=== PATIENT | male | born 1980 | race Caucasian/White ===

== ENCOUNTER 2016-12-14 16:06 | Emergency (ER) | payer MEDICAID ==
[2016-12-14 16:13] VITALS: BMI 25.1
[2016-12-14 16:21] VITALS: O2SAT 95
[2016-12-14] MEDS ORDERED: Sodium Chloride 0.9% 1,000 ML IV ONE (16:31)
--- NOTE | 2016-12-14 16:37 | C.PDOC ---
History Of Present Illness 36 year old male with a Hx of hepatitis C who presents to the ER with a complaint of constant bilious vomiting and PO intolerance that began this morning. Patient states he is an active heroin user; last use was earlier today. Patient reports he took an extra dose of heroin just to make sure he was not in withdrawal; however, it did not help. Patient states he feels flushed but denies diarrhea, fever, or chills. Time Seen by Provider: 12/14/16 16:16 Chief Complaint (Nursing): GI Problem History Per: Patient History/Exam Limitations: no limitations Onset/Duration Of Symptoms: Hrs Current Symptoms Are (Timing): Still Present Quality Of Discomfort: Unable To Describe Associated Symptoms: Vomiting. denies: Fever, Chills, Diarrhea Exacerbating Factors: None Alleviating Factors: None Recent travel outside of the [place]: No Past Medical History Reviewed: Historical Data, Nursing Documentation, Vital Signs Vital Signs: Last Vital Signs Temp 97.8 F 12/14/16 16:13 Pulse 90 12/14/16 16:13 Resp 18 12/14/16 16:13 BP 138/85 12/14/16 16:13 Pulse Ox 95 12/14/16 16:42 - Medical History PMH: No Chronic Diseases Surgical History: No Surg Hx Family History: States: Unknown Family Hx - Social History Hx Tobacco Use: No Hx Alcohol Use: Yes Hx Substance Use: No - Immunization History Hx Tetanus Toxoid Vaccination: No Hx Influenza Vaccination: No Hx Pneumococcal Vaccination: No Review Of Systems Constitutional: Negative for: Fever, Chills Gastrointestinal: Positive for: Vomiting. Negative for: Diarrhea Physical Exam - Physical Exam Appears: Non-toxic, Other (Actively vomiting) Skin: Normal Color, Warm, Diaphoretic Head: Atraumatic, Normacephalic Oral Mucosa: Moist Chest: Symmetrical, No Tenderness Cardiovascular: Rhythm Regular, No Murmur Respiratory: Normal Breath Sounds, No Rales, No Rhonchi, No Wheezing Gastrointestinal/Abdominal: Soft, No Tenderness Neurological/Psych: Oriented x3, Normal Speech, Normal Cognition ED Course And Treatment - Laboratory Results Result Diagrams: 12/14/16 17:05 12/14/16 17:05 O2 Sat by Pulse Oximetry: 95 (Room air) Pulse Ox Interpretation: Normal Medical Decision Making Medical Decision Making: Plan: * Blood work * Urinalysis * Abdominal x-ray * Pepcid * Zofran * IV fluids Feeling better Disposition Counseled Patient/Family Regarding: Studies Performed, Diagnosis - Disposition Disposition: HOME/ ROUTINE Disposition Time: 18:36 Condition: STABLE Prescriptions: Ondansetron ODT [Zofran ODT] 1 odt PO BID PRN #6 odt PRN Reason: Nausea/Vomiting Instructions: Acute Nausea and Vomiting (ED) Forms: General Discharge Instructions - POA Present On Arrival: None - Clinical Impression Clinical Impression: Gastritis, Vomiting - Scribe Statement The provider has reviewed the documentation as recorded by the Scribrama Antunez All medical record entries made by the Mary were at my direction and personally dictated by me. I have reviewed the chart and agree that the record accurately reflects my personal performance of the history, physical exam, medical decision making, and the department course for this patient. I have also personally directed, reviewed, and agree with the discharge instructions and disposition.
[2016-12-14] MEDS ORDERED: Sodium Chloride 0.9% 1,000 ML ONE (16:52)
--- NOTE | 2016-12-14 17:07 | RAD ---
PROCEDURE: Radiographs of the chest and abdomen (obstructive series) HISTORY: abd pain COMPARISON: No prior. TECHNIQUE: AP radiograph of the chest, with upright and supine radiographs of the abdomen. FINDINGS: CHEST: Lungs: Clear. Cardiovascular: Normal size heart. No pulmonary vascular congestion. Pleura: No pleural fluid. No pneumothorax. Other findings: None. ABDOMEN AND PELVIS: Bowel: Unremarkable bowel gas pattern. No evidence of mechanical obstruction. Free air: None. Bones: Unremarkable. Other findings: None. IMPRESSION: Unremarkable radiographs of chest and abdomen. No evidence of mechanical bowel obstruction.
[2016-12-14 17:13] LABS: BASO # 0.1 K/uL (0.0-0.2); BASO % 0.5 % (0.0-2.0); EOS % 0.2 % (0.0-4.0); HEMOGLOBIN 13.2 g/dL (12.0-18.0); LYMPH # 1.2 K/uL (1.0-4.3); LYMPH % 9.8 % (20.0-40.0); MEAN CELL VOLUME 92.9 fL (80.0-94.0); MEAN CORPUSCULAR HEMOGLOBIN 31.3 pg (27.0-31.0); MEAN CORPUSCULAR HGB CONC 33.6 g/dL (33.0-37.0); MEAN PLATELET VOLUME 7.4 fL (7.2-11.7); MONO # 0.6 K/uL (0.0-0.8); MONO % 5.2 % (0.0-10.0); NEUT # 10.1 K/uL (1.8-7.0); NEUT % 84.3 % (50.0-75.0); PLATELET COUNT 265 K/uL (130-400); RBC 4.22 Mil/uL (4.40-5.90)
[2016-12-14 17:18] LABS: ALBUMIN 4.6 g/dL (3.5-5.0)
[2016-12-14 17:21] LABS: GFR AFRICAN-AMERICAN > 60; GFR NON-AFRICAN AMERICAN > 60
[2016-12-14 17:22] LABS: ALT/SGPT 64 U/L (21-72); AST/SGOT 85 U/L (17-59); BLOOD UREA NITROGEN 15 mg/dL (9-20); CALCIUM 9.8 mg/dl (8.6-10.4); LIPASE 44 U/L (23-300)
[2016-12-14] MEDS ORDERED: Dextrose 5%/0.45% NS 1,000 ML IV ONE ×2 (17:35→17:50)
[2016-12-14 18:16] LABS: LYMPHOCYTE 10 % (20-40); MONOCYTE 2 % (0-10); NEUTROPHIL 88 % (50-75); PLATELET ESTIMATE SLIGHTLY INCREASED (NORMAL); TOTAL CELLS COUNTED 100
[2016-12-14 18:17] LABS: LARGE PLATELETS PRESENT
[2016-12-14 19:11] VITALS: BP 110/57; PULSE 85; RESP 19; TEMP 98
== END 2016-12-14 19:19 | disposition home or self-care (01) ==
LOC: C.ER 16:06
DX: K29.70 Gastritis, unspecified, without bleeding (principal); R11.10 Vomiting, unspecified
CPT/HCPCS: 74022; 80053; 83690; 85025; 96361; 96374; 96375; 99285; J2405; J7040; J7042

== ENCOUNTER 2017-01-11 14:26 | Emergency (ER) | payer MEDICAID ==
[2017-01-11 14:38] VITALS: BMI 23.7
[2017-01-11 14:42] VITALS: RESP 18
[2017-01-11] MEDS ORDERED: Sodium Chloride 0.9% 1,000 ML IV ONE (15:50)
[2017-01-11 16:15] LABS: BASO % 0.6 % (0.0-2.0); EOS % 0.4 % (0.0-4.0); HEMATOCRIT 39.5 % (35.0-51.0); LYMPH # 0.9 K/uL (1.0-4.3); LYMPH % 13.5 % (20.0-40.0); MEAN CORPUSCULAR HEMOGLOBIN 32.2 pg (27.0-31.0); MEAN CORPUSCULAR HGB CONC 34.3 g/dL (33.0-37.0); MEAN PLATELET VOLUME 7.5 fL (7.2-11.7); MONO # 0.4 K/uL (0.0-0.8); MONO % 6.7 % (0.0-10.0); RED CELL DISTRIBUTION WIDTH 13.1 % (11.5-14.5); WHITE BLOOD COUNT 6.6 K/uL (4.8-10.8)
[2017-01-11 16:23] LABS: INR 1.1
[2017-01-11 16:33] LABS: CHLORIDE 100 mmol/L (98-107)
[2017-01-11 16:34] LABS: POTASSIUM 4.5 mmol/L (3.6-5.2); SODIUM 140 mmol/L (132-148)
[2017-01-11 16:36] LABS: CARBON DIOXIDE 26 mmol/L (22-30); GFR AFRICAN-AMERICAN > 60
[2017-01-11 16:37] LABS: ALB/GLOB RATIO 0.9 (1.0-2.1); ALKALINE PHOSPHATASE 120 U/L (38-126); ALT/SGPT 123 U/L (21-72); AST/SGOT 162 U/L (17-59); BLOOD UREA NITROGEN 9 mg/dL (9-20); CALCIUM 9.8 mg/dl (8.6-10.4); GLUCOSE,RANDOM 106 mg/dL (75-110); TOTAL PROTEIN 9.1 g/dL (6.3-8.3)
[2017-01-11 16:38] LABS: ALCOHOL SERUM < 10 mg/dl (0-10)
[2017-01-11 16:49] VITALS: O2SAT 98
--- NOTE | 2017-01-11 17:19 | CT ---
PROCEDURE: CT HEAD WITHOUT CONTRAST. HISTORY: s/p head injury last night COMPARISON: None available. TECHNIQUE: Axial computed tomography images were obtained through the head/brain without intravenous contrast. Radiation dose: Total exam DLP = 807.34 mGy-cm. This CT exam was performed using one or more of the following dose reduction techniques: Automated exposure control, adjustment of the mA and/or kV according to patient size, and/or use of iterative reconstruction technique. FINDINGS: HEMORRHAGE: No intracranial hemorrhage. BRAIN: No mass effect or edema. No atrophy or chronic microvascular ischemic changes. VENTRICLES: Unremarkable. No hydrocephalus. CALVARIUM: Unremarkable. PARANASAL SINUSES: Unremarkable as visualized. No significant inflammatory changes. MASTOID AIR CELLS: Unremarkable as visualized. No inflammatory changes. OTHER FINDINGS: None. IMPRESSION: No evidence of acute intracranial hemorrhage intracranial collection mass effect or midline shift.
--- NOTE | 2017-01-11 17:24 | CT ---
PROCEDURE: CT MAXILLOFACIAL BONES WITHOUT CONTRAST HISTORY: s/p head/facial injury last night COMPARISON: None TECHNIQUE: Contiguous axial CT images of the maxillofacial bones were obtained. Coronal and sagittal reformats were generated. Radiation dose: Total exam DLP = 725.03 mGy-cm. This CT exam was performed using one or more of the following dose reduction techniques: Automated exposure control, adjustment of the mA and/or kV according to patient size, and/or use of iterative reconstruction technique. FINDINGS: NASAL BONES: Unremarkable. ORBITS: Unremarkable. PARANASAL SINUSES/ MASTOIDS: Mild to moderate right maxillary sinus mucosal thickening. Mild ethmoidal and right maxillary sinus mucosal thickening. Right-sided keyla bullosa is seen. MAXILLA: Unremarkable. MANDIBLE/ TEMPOROMANDIBULAR JOINTS: Unremarkable. SKULL BASE: Unremarkable. TEMPORAL BONES: Middle ears and mastoid grossly unremarkable. OTHER FINDINGS: None. IMPRESSION: No evidence of acute fracture or or dislocation in the maxillofacial bones. Uual-[id number]-imchutgx sinuses mucosal thickening.
--- NOTE | 2017-01-11 17:34 | CT ---
PROCEDURE: CT Cervical Spine without contrast HISTORY: Evaluate for fracture. Status post head injury/fall, neck pain COMPARISON: None available. TECHNIQUE: Axial computed tomography images were obtained of the cervical spine without the use of intravenous contrast. Coronal and sagittal reformatted images were created and reviewed. Radiation dose: Total exam DLP = 365.77 mGy-cm. This CT exam was performed using one or more of the following dose reduction techniques: Automated exposure control, adjustment of the mA and/or kV according to patient size, and/or use of iterative reconstruction technique. FINDINGS: VERTEBRAE: No fracture. Normal alignment. No destructive bony lesion. DISCS/SPINAL CANAL/NEURAL FORAMINA: No significant central canal or neural foraminal stenosis. Discs heights are grossly preserved. PARASPINAL SOFT TISSUES: Unremarkable. OTHER FINDINGS: None. IMPRESSION: No evidence of acute fracture or subluxation. Straightening of the cervical spine which could be due to muscle spasm.
[2017-01-11 17:43] LABS: RBC URINE 10 /hpf (0-3); URINE BILIRUBIN NEGATIVE (NEGATIVE); URINE BLOOD NEGATIVE (NEGATIVE); URINE COLOR Amber (YELLOW); URINE GLUCOSE (UA) NORMAL (Normal); URINE KETONE 1+ mg/dL (NEGATIVE); URINE LEUKOCYTE ESTERASE NEG Leu/uL (Negative); URINE PROTEIN 2+ mg/dL (NEGATIVE); WBC URINE 1 /hpf (0-5)
--- NOTE | 2017-01-11 18:23 | C.PDOC ---
History Of Present Illness Pt states that he was sitting on a stool last night when he "nodded off" and fell hitting his head. Pt woke up today with nausea and vomiting. Time Seen by Provider: 01/11/17 15:49 Chief Complaint (Nursing): Trauma History Per: Patient Injury Occurred (Timing): Days Ago: (1) Patient States: Fell Striking Head Severity: Moderate Loss Of Consciousness: No Additional History Per: Prior Records Past Medical History Reviewed: Historical Data, Nursing Documentation, Vital Signs Vital Signs: Last Vital Signs Temp 97.8 F 01/11/17 16:49 Pulse 70 01/11/17 16:49 Resp 18 01/11/17 16:49 BP 117/72 01/11/17 16:49 Pulse Ox 98 01/11/17 16:49 - Medical History PMH: No Chronic Diseases Family History: States: Unknown Family Hx - Social History Hx Tobacco Use: No Hx Alcohol Use: Yes Hx Substance Use: Yes (IVDU Heroin) - Immunization History Hx Tetanus Toxoid Vaccination: No Hx Influenza Vaccination: No Hx Pneumococcal Vaccination: No Review Of Systems Except As Marked, All Systems Reviewed And Found Negative. Constitutional: Negative for: Fever Cardiovascular: Negative for: Chest Pain Respiratory: Negative for: Shortness of Breath Gastrointestinal: Positive for: Nausea, Vomiting. Negative for: Abdominal Pain , Diarrhea, Hematemesis Genitourinary: Negative for: Hematuria Musculoskeletal: Positive for: Neck Pain. Negative for: Back Pain Neurological: Negative for: Weakness, Numbness, Seizures, Altered Mental Status , Dizziness Physical Exam - Physical Exam Appears: Non-toxic, No Acute Distress Skin: Normal Color, Warm, Dry Head: Abrasion (Right forehead/periorbital), No Laceration Eye(s): bilateral: PERRL, EOMI Ear(s): Bilateral: Normal Neck: Normal ROM, Paracervical Tenderness, No Step Off Deformity, Supple Chest: Symmetrical, No Deformity Cardiovascular: Rhythm Regular Respiratory: Normal Breath Sounds, No Accessory Muscle Use Gastrointestinal/Abdominal: Soft, No Tenderness Back: No Vertebral Tenderness Extremity: Normal ROM, No Deformity Neurological/Psych: Oriented x3, Normal Speech, Normal Cognition, Normal Motor, Normal Sensation ED Course And Treatment - Laboratory Results Result Diagrams: 01/11/17 16:12 01/11/17 16:12 O2 Sat by Pulse Oximetry: 98 Pulse Ox Interpretation: Normal - CT Scan/US CT head Other Rad Studies (CT/US): Read By Radiologist, Radiology Report Reviewed CT/US Interpretation: IMPRESSION: No evidence of acute intracranial hemorrhage intracranial collection mass effect or midline shift. CT Facial bones Other Rad Studies (CT/US): Read By Radiologist, Radiology Report Reviewed CT/US Interpretation: IMPRESSION: No evidence of acute fracture or or dislocation in the maxillofacial bones. [id number] sinuses mucosal thickening. CT C-spine Other Rad Studies (CT/US): Read By Radiologist, Radiology Report Reviewed CT/US Interpretation: IMPRESSION: No evidence of acute fracture or subluxation. Straightening of the cervical spine which could be due to muscle spasm. Progress - Interventions Interventions:: Observation, Intravenous fluid - Medications Administered Intravenous: Antiemetic, NSAID - Data Reviewed Data Reviewed: Lab, Diagnostic imaging, Old records - Patient Status Patient status: Mostly improved - Continuity of Care Discussed patient case with:: Patient, ED Nurse - Patient Plan Patient Plan: Discharge, F/U with PCP Disposition Counseled Patient/Family Regarding: Studies Performed, Diagnosis, Need For Followup, Rx Given - Disposition Disposition: HOME/ ROUTINE Disposition Time: 18:25 Condition: IMPROVED Additional Instructions: Follow up with your doctor within 2 days. Return to the ER if you develop weakness, numbness, worsening of symptoms or if you have any other concerns. Prescriptions: Naproxen [Naprosyn] 1 tab PO BID PRN #20 tab PRN Reason: Pain Instructions: Head Injury (ED) Forms: [employer] (Malawian) - Clinical Impression Clinical Impression: Head injury, acute
[2017-01-11 18:46] VITALS: BP 132/77; PULSE 98; TEMP 98.7
== END 2017-01-11 18:46 | disposition home or self-care (01) ==
LOC: C.ER 14:26
DX: S09.90XA Unspecified injury of head, initial encounter (principal); W17.89XA Other fall from one level to another, initial encounter; Y92.9 Unspecified place or not applicable
CPT/HCPCS: 70450; 70486; 72125; 80053; 80320; 80324; 80345; 80346; 80349; 80353; 80358; 80361; 81001; 83992; 85025; 85610; 85730; 96361; 96374; 96375; 99285; J1885; J2765; J7040

== ENCOUNTER 2017-02-25 21:16 | Emergency (ER) | payer MEDICAID ==
[2017-02-25 21:17] VITALS: BMI 23.7
--- NOTE | 2017-02-25 21:39 | C.PDOC ---
History Of Present Illness Patient presents to the ED with complaints of nausea, vomiting, and abdominal pain beginning earlier today. Patient states he was using heroin prior to onset of symptoms. Also has chest discomfort with vomiting only. Denies fever or chills. Time Seen by Provider: 02/25/17 21:39 Chief Complaint (Nursing): Abdominal Pain History Per: Patient History/Exam Limitations: no limitations Onset/Duration Of Symptoms: Hrs Current Symptoms Are (Timing): Still Present Severity: Mild Pain Scale Rating Of: 4 Location Of Pain/Discomfort: Epigastric Radiation Of Pain To:: None Quality Of Discomfort: "Pain" Associated Symptoms: Nausea, Vomiting. denies: Fever, Chills Exacerbating Factors: None Alleviating Factors: None Recent travel outside of the [place]: No Past Medical History Reviewed: Historical Data, Nursing Documentation, Vital Signs Vital Signs: Last Vital Signs Temp 98 F 02/26/17 00:42 Pulse 82 02/26/17 00:42 Resp 20 02/26/17 00:42 BP 154/86 H 02/26/17 00:42 Pulse Ox 98 02/26/17 01:51 Family History: States: No Known Family Hx - Social History Hx Tobacco Use: No Hx Alcohol Use: Yes Hx Substance Use: Yes (IVDU Heroin) - Immunization History Hx Tetanus Toxoid Vaccination: No Hx Influenza Vaccination: No Hx Pneumococcal Vaccination: No Review Of Systems Constitutional: Negative for: Fever, Chills Cardiovascular: Positive for: Other (chest discomfort ). Negative for: Palpitations Gastrointestinal: Positive for: Nausea, Vomiting, Abdominal Pain. Negative for : Diarrhea Musculoskeletal: Negative for: Hand Pain Skin: Negative for: Rash Neurological: Negative for: Weakness Psych: Negative for: Anxiety Physical Exam - Physical Exam Appears: Non-toxic, No Acute Distress Skin: Warm, Dry Head: Atraumatic Eye(s): bilateral: Normal Inspection Oral Mucosa: Dry Neck: Supple Chest: Symmetrical, No Deformity, Other (chest wall discomfort on palpation ) Cardiovascular: Rhythm Regular, No Murmur Respiratory: Normal Breath Sounds, No Rales, No Rhonchi, No Wheezing Gastrointestinal/Abdominal: Soft, Tenderness (epigastric tenderness ), No Distention, No Guarding, No Rebound ED Course And Treatment - Laboratory Results Result Diagrams: 02/25/17 22:10 02/25/17 22:10 ECG: Interpreted By Me, Viewed By Me ECG Rhythm: Sinus Rhythm (78), Nonspecific Changes O2 Sat by Pulse Oximetry: 98 Pulse Ox Interpretation: Normal Reevaluation Time: 03:09 Reassessment Condition: Improved Disposition Counseled Patient/Family Regarding: Studies Performed, Diagnosis, Need For Followup - Disposition Referrals: [facility] [Outside] Disposition: HOME/ ROUTINE Disposition Time: 21:39 Condition: FAIR Prescriptions: Ondansetron ODT [Zofran ODT] 1 odt PO BID PRN #6 odt PRN Reason: Nausea/Vomiting Pantoprazole Sodium [Protonix] 20 mg PO DAILY #14 ect Instructions: Polysubstance Abuse (ED), Abdominal Pain (ED) Forms: [employer] (Slovenian) - Clinical Impression Clinical Impression: Abdominal pain, Polysubstance (excluding opioids) dependence - Scribe Statement The provider has reviewed the documentation as recorded by the Scribe Britany Adams All medical record entries made by the Scribe were at my direction and personally dictated by me. I have reviewed the chart and agree that the record accurately reflects my personal performance of the history, physical exam, medical decision making, and the department course for this patient. I have also personally directed, reviewed, and agree with the discharge instructions and disposition.
[2017-02-25] MEDS ORDERED: Sodium Chloride 0.9% 1,000 ML IV ONE (21:42)
[2017-02-25 22:16] LABS: BASO # 0.1 K/uL (0.0-0.2); BASO % 0.7 % (0.0-2.0); EOS % 0.1 % (0.0-4.0); HEMATOCRIT 38.6 % (35.0-51.0); LYMPH # 0.7 K/uL (1.0-4.3); LYMPH % 5.8 % (20.0-40.0); MEAN CELL VOLUME 94.8 fL (80.0-94.0); MEAN CORPUSCULAR HEMOGLOBIN 32.3 pg (27.0-31.0); MEAN PLATELET VOLUME 7.6 fL (7.2-11.7); MONO # 0.5 K/uL (0.0-0.8); MONO % 4.5 % (0.0-10.0); PLATELET COUNT 213 K/uL (130-400); RED CELL DISTRIBUTION WIDTH 12.5 % (11.5-14.5); WHITE BLOOD COUNT 11.5 K/uL (4.8-10.8)
[2017-02-25 22:24] LABS: CHLORIDE 90 mmol/L (98-107); SODIUM 137 mmol/L (132-148)
[2017-02-25 22:26] LABS: ALB/GLOB RATIO 1.1 (1.0-2.1); AST/SGOT 194 U/L (17-59); BILIRUBIN,TOTAL 1.5 mg/dL (0.2-1.3); CARBON DIOXIDE 29 mmol/L (22-30); GFR AFRICAN-AMERICAN > 60; TOTAL PROTEIN 9.3 g/dL (6.3-8.3)
[2017-02-25 22:27] LABS: ALKALINE PHOSPHATASE 121 U/L (38-126); ALT/SGPT 136 U/L (21-72); BLOOD UREA NITROGEN 11 mg/dL (9-20); CALCIUM 9.8 mg/dl (8.6-10.4); GLUCOSE,RANDOM 84 mg/dL (75-110)
[2017-02-25 22:29] LABS: INR 1.1
[2017-02-25 23:21] LABS: NEUTROPHIL 81 % (50-75); TOTAL CELLS COUNTED 100
[2017-02-25 23:22] LABS: LARGE PLATELETS PRESENT; SMUDGE CELLS PRESENT
[2017-02-26 00:22] LABS: RBC URINE 9 /hpf (0-3); URINE BACTERIA RARE (<OCC); URINE BILIRUBIN NEGATIVE (NEGATIVE); URINE BLOOD NEGATIVE (NEGATIVE); URINE COLOR Amber (YELLOW); URINE GLUCOSE (UA) NORMAL (Normal); URINE KETONE 2+ mg/dL (NEGATIVE); URINE LEUKOCYTE ESTERASE NEG Leu/uL (Negative); URINE PROTEIN 2+ mg/dL (NEGATIVE); WBC URINE 1 /hpf (0-5)
[2017-02-26 03:47] VITALS: BP 121/65; PULSE 88; RESP 12; TEMP 98; O2SAT 97
--- NOTE | 2017-03-03 22:14 | CARD ---
APPROVED REPORT EKG Measurement Heart [id number] OR [id number] [id number] <Conclusion> Normal sinus rhythm Normal ECG
== END 2017-02-26 03:47 | disposition home or self-care (01) ==
LOC: C.ER 21:16
DX: R10.13 Epigastric pain (principal); F19.20 Other psychoactive substance dependence, uncomplicated
CPT/HCPCS: 80053; 80320; 80324; 80345; 80346; 80349; 80353; 80358; 80361; 81001; 83690; 83992; 85025; 85610; 85730; 93005; 96374; 96375; 99285; J1885; J2405; J7040

== ENCOUNTER 2017-08-07 11:49 | Emergency (ER) | payer MEDICAID ==
[2017-08-07 11:50] VITALS: BMI 23.7
[2017-08-07 12:10] VITALS: O2SAT 98
--- NOTE | 2017-08-07 12:37 | C.PDOC ---
History Of Present Illness 36-YEAR-OLD MALE, PRESENTS TO THE EMERGENCY DEPARTMENT COMPLAINING OF DYSURIA FOR 1 WEEK W WORSENING URINARY RETENTION TODAY. PATIENT HAS A HX OF SIMILAR SX IN PAST WHICH REQUIRED LUA. PATIENT NOTES POLYURIA AND URGENCY W PRIOR HX UTI. NO FEVER. LAST URINARY OUTPUT "VERY LITTLE" AT 8AM. PT NOT CONCERNED FOR STDs exam ABD SOME TENDERNESS OVER BLADDER AREA UNCIRCUMCISED NO LESIONS Time Seen by Provider: 08/07/17 12:14 Chief Complaint (Nursing): Male Genitourinary History Per: Patient History/Exam Limitations: no limitations Past Medical History Reviewed: Historical Data, Nursing Documentation, Vital Signs Vital Signs: Last Vital Signs Temp 98 F 08/07/17 12:08 Pulse 89 08/07/17 12:08 Resp 18 08/07/17 12:08 BP 123/69 08/07/17 12:08 Pulse Ox 98 08/07/17 13:14 Family History: States: No Known Family Hx - Social History Hx Tobacco Use: No Hx Alcohol Use: Yes Hx Substance Use: Yes (IVDU Heroin) - Immunization History Hx Tetanus Toxoid Vaccination: No Hx Influenza Vaccination: No Hx Pneumococcal Vaccination: No Review Of Systems Constitutional: Negative for: Fever Respiratory: Negative for: Shortness of Breath Gastrointestinal: Negative for: Nausea, Vomiting, Abdominal Pain Genitourinary: Positive for: Dysuria, Frequency. Negative for: Incontinence, Hematuria, Penile Discharge Neurological: Negative for: Headache, Dizziness Physical Exam - Physical Exam Appears: Well, Non-toxic, No Acute Distress Skin: Normal Color, Warm, Dry, No Rash Head: Normacephalic Eye(s): bilateral: PERRL Oral Mucosa: Moist Lips: Normal Appearing Neck: Normal ROM Chest: Symmetrical Cardiovascular: Rhythm Regular, No Murmur Respiratory: Normal Breath Sounds, No Accessory Muscle Use Gastrointestinal/Abdominal: Soft, Tenderness (mild, over bladder), No Guarding, No Rebound Male Genital: No Testicular Tenderness, No Testicular Swelling, No Circumcised, Other (no lesions) Extremity: Normal ROM Neurological/Psych: Oriented x3, Normal Speech ED Course And Treatment O2 Sat by Pulse Oximetry: 98 (RA) Pulse Ox Interpretation: Normal Progress - Data Reviewed Data Reviewed: Lab, Diagnostic imaging, Old records Medical Decision Making Medical Decision Making: OVER 350 BLADDER SCAN Disposition Counseled Patient/Family Regarding: Studies Performed, Diagnosis, Need For Followup, Rx Given - Disposition Referrals: your,pmd [Other] Eyad Rowland MD [Staff Provider] - Disposition: HOME/ ROUTINE Disposition Time: 13:17 Condition: IMPROVED Additional Instructions: follow up with urologist for lua removal, reevaluation of urinary retention. Prescriptions: Phenazopyridine HCl [Pyridium] 200 mg PO BID #6 tablet Sulfamethoxazole/Trimethoprim [Bactrim DS 800 mg-160 mg] 1 tab PO BID #14 tab Instructions: Urinary Retention, Dysuria, Adult (DC) Forms: [employer] (Honduran) - Clinical Impression Clinical Impression: Dysuria, Urinary retention - Scribe Statement The provider has reviewed the documentation as recorded by the Scribe (Perfecto Rodney) All medical record entries made by the Scribe were at my direction and personally dictated by me. I have reviewed the chart and agree that the record accurately reflects my personal performance of the history, physical exam, medical decision making, and the department course for this patient. I have also personally directed, reviewed, and agree with the discharge instructions and disposition.
[2017-08-07 12:56] LABS: URINE BILIRUBIN NEGATIVE (NEGATIVE); URINE BLOOD 1+ (NEGATIVE); URINE CLARITY Clear (Clear); URINE COLOR Yellow (YELLOW); URINE GLUCOSE (UA) NORMAL (Normal); URINE LEUKOCYTE ESTERASE NEG Leu/uL (Negative); URINE PROTEIN 2+ mg/dL (NEGATIVE); URINE UROBILINOGEN NORMAL mg/dL (0.2-1.0)
[2017-08-07] MEDS ORDERED: Tmp-Smz 800 mg-160 mg DS Tab PO STA (13:18)
[2017-08-07 13:26] VITALS: RESP 16
[2017-08-07] MEDS ORDERED: Tmp-Smz 800 mg-160 mg DS Tab ONE (13:26)
[2017-08-07 13:42] VITALS: BP 139/80; PULSE 92; TEMP 98.1
== END 2017-08-07 13:41 | disposition home or self-care (01) ==
LOC: C.ER 11:49
DX: R33.9 Retention of urine, unspecified (principal); R30.0 Dysuria

== ENCOUNTER 2017-08-10 14:58 | Emergency (ER) | payer MEDICAID ==
[2017-08-10 14:59] VITALS: BMI 23.7
[2017-08-10 15:04] VITALS: BP 116/78; PULSE 107; RESP 18; TEMP 98; O2SAT 95
--- NOTE | 2017-08-10 15:20 | C.PDOC ---
History Of Present Illness 36 y/o male presents to ED for lua removal, seen in ED on 08/07 for retention. had lua inserted then, and given rx for pyridium and bactrim; pt finished pyridium and sts only few tabs bactrim left, has been taking them 3 times a day. pt came here for lua removal. Time Seen by Provider: 08/10/17 15:10 Chief Complaint (Nursing): Medical Clearance History Per: Patient History/Exam Limitations: no limitations (4) Onset/Duration Of Symptoms: Days Past Medical History Reviewed: Historical Data, Nursing Documentation, Vital Signs Vital Signs: Last Vital Signs Temp 98 F 08/10/17 15:01 Pulse 107 H 08/10/17 15:01 Resp 18 08/10/17 15:01 BP 116/78 08/10/17 15:01 Pulse Ox 95 08/12/17 01:17 - Medical History Other PMH: substance abuse Family History: States: Unknown Family Hx - Social History Hx Tobacco Use: No Hx Alcohol Use: Yes Hx Substance Use: Yes (IVDU Heroin) - Immunization History Hx Tetanus Toxoid Vaccination: No Hx Influenza Vaccination: No Hx Pneumococcal Vaccination: No Review Of Systems Constitutional: Negative for: Fever, Chills Gastrointestinal: Negative for: Abdominal Pain Physical Exam - Physical Exam Appears: Non-toxic, No Acute Distress, Other (pt walked out before further exam could be done. ) ED Course And Treatment O2 Sat by Pulse Oximetry: 95 Medical Decision Making Medical Decision Making: discussed with patient that lua should be removed by urologist after an evaluation by them. pt walked out of ed prior to exam. Disposition - Disposition Disposition: ELOPEMENT - ER ONLY Disposition Time: 15:20 Condition: STABLE Forms: [employer] (Tajik) - Clinical Impression Clinical Impression: Urinary retention
== END 2017-08-10 15:21 | disposition left against medical advice (07) ==
LOC: C.ER 14:58
DX: R33.9 Retention of urine, unspecified (principal)

== ENCOUNTER 2017-08-15 13:46 | Emergency (ER) | payer MEDICAID ==
[2017-08-15 13:47] VITALS: BMI 23.7
[2017-08-15 13:52] VITALS: BP 107/71; RESP 20; TEMP 98.4; O2SAT 97
--- NOTE | 2017-08-15 14:26 | C.PDOC ---
History Of Present Illness 36-year-old male presents to the emergency department requesting removal of lua catheter, was placed on 08/07/17 in this ED. Patient states he has been trying to f/u with a urologist but has been unable to find one that accepts his insurance. Patient notes he was compliant with antibiotics given to him during initial ED visit He denies fever, nausea/vomiting, dysuria/hematuria. Time Seen by Provider: 08/15/17 13:54 Chief Complaint (Nursing): Male Genitourinary History Per: Patient History/Exam Limitations: no limitations Past Medical History Reviewed: Historical Data, Nursing Documentation, Vital Signs Vital Signs: Last Vital Signs Temp 98.4 F 08/15/17 13:49 Pulse 90 08/15/17 14:52 Resp 20 08/15/17 13:49 BP 107/71 08/15/17 13:49 Pulse Ox 97 08/16/17 10:13 - Medical History PMH: No Chronic Diseases Family History: States: No Known Family Hx - Social History Hx Tobacco Use: No Hx Alcohol Use: Yes Hx Substance Use: Yes (IVDU Heroin) - Immunization History Hx Tetanus Toxoid Vaccination: No Hx Influenza Vaccination: No Hx Pneumococcal Vaccination: No Review Of Systems Except As Marked, All Systems Reviewed And Found Negative. Constitutional: Negative for: Fever Respiratory: Negative for: Shortness of Breath Gastrointestinal: Negative for: Nausea, Vomiting, Abdominal Pain, Diarrhea Genitourinary: Negative for: Dysuria, Hematuria, Penile Discharge Skin: Negative for: Rash Physical Exam - Physical Exam Appears: Well, Non-toxic, No Acute Distress Skin: Normal Color, Warm, Dry, No Rash Oral Mucosa: Moist Cardiovascular: Rhythm Regular Respiratory: Normal Breath Sounds, No Rales, No Rhonchi, No Wheezing Gastrointestinal/Abdominal: Normal Exam, Bowel Sounds, Soft, No Tenderness Male Genital: No Testicular Swelling, No Inguinal Tenderness, No Inguinal Swelling, Other (Lua catheter in place. ) Neurological/Psych: Oriented x3 ED Course And Treatment O2 Sat by Pulse Oximetry: 97 (RA) Pulse Ox Interpretation: Normal Progress Note: Patient given PO Flomax. Explained to patient that he will potentially have urinary retention again if lua is removed. Patient understands the risks, but still wants lua removed. Lua removed by ED nurse , patient tolerated well. Patient given Rx for Flomax, and instructed to call his insurance company and ask for list of urologists for follow up . He understands he should return to ED if symptoms return/worsen. Reevaluation Time: 14:35 Reassessment Condition: Improved Disposition Counseled Patient/Family Regarding: Diagnosis, Need For Followup, Rx Given - Disposition Referrals: Eyad Rowland MD [Staff Provider] - Disposition: HOME/ ROUTINE Disposition Time: 14:35 Condition: STABLE Additional Instructions: FOLLOW UP WITH UROLOGY IN 1-2 DAYS - CALL YOUR INSURANCE COMPANY AND ASK FOR UROLOGIST USE MEDICATION DIRECTED RETURN TO ER IF SYMPTOMS RETURN/WORSEN Prescriptions: Tamsulosin [Flomax] 0.4 mg PO DAILY #7 cap Instructions: Lua Catheter, Male Forms: [employer] (Bruneian) Print Language: MOHAWK - Clinical Impression Clinical Impression: Urinary retention, Encounter for Lua catheter removal - Scribe Statement The provider has reviewed the documentation as recorded by the Scribe (Perfecto Rodney) All medical record entries made by the Scribe were at my direction and personally dictated by me. I have reviewed the chart and agree that the record accurately reflects my personal performance of the history, physical exam, medical decision making, and the department course for this patient. I have also personally directed, reviewed, and agree with the discharge instructions and disposition.
[2017-08-15 14:52] VITALS: PULSE 90
== END 2017-08-15 14:52 | disposition home or self-care (01) ==
LOC: C.ER 13:46
DX: Z46.6 Encounter for fitting and adjustment of urinary device (principal); R33.9 Retention of urine, unspecified

== ENCOUNTER 2017-10-11 14:42 | Inpatient (IN) | payer MEDICAID ==
[2017-10-11 14:46] VITALS: BMI 19.5
[2017-10-11] MEDS ORDERED: Sodium Chloride 0.9% 1,000 ML IV ONE (14:50)
--- NOTE | 2017-10-11 14:58 | C.PDOC ---
History Of Present Illness 37 year old male presents to the emergency department with complaints of vomiting starting this morning. Patient states he is unable to tolerate anything by mouth, and states that he felt uncomfortable and feverish yesterday. He has no diarrhea. Patient admits to using IV heroin daily, last used this morning. Patient was evaluated in the ED recently for urinary retention but failed to follow-up with a urologist. Time Seen by Provider: 10/11/17 14:49 Chief Complaint (Nursing): Substance Abuse History/Exam Limitations: no limitations Onset/Duration Of Symptoms: Days (1) Current Symptoms Are (Timing): Still Present Modifying Factor(s): Other (heroin) Past Medical History Reviewed: Historical Data, Nursing Documentation, Vital Signs Vital Signs: Last Vital Signs Temp 98.4 F 10/11/17 14:45 Pulse 108 H 10/11/17 14:45 Resp 20 10/11/17 14:45 BP 140/88 10/11/17 14:45 Pulse Ox 96 10/11/17 15:06 - Medical History PMH: No Chronic Diseases Surgical History: No Surg Hx Family History: States: No Known Family Hx - Social History Hx Tobacco Use: No Hx Alcohol Use: Yes Hx Substance Use: Yes (IVDU Heroin) - Immunization History Hx Tetanus Toxoid Vaccination: Yes ("5 years ago") Hx Influenza Vaccination: No Hx Pneumococcal Vaccination: No Review Of Systems Constitutional: Positive for: Fever Gastrointestinal: Positive for: Vomiting. Negative for: Diarrhea Physical Exam - Physical Exam Appears: Non-toxic, No Acute Distress Cardiovascular: Rhythm Regular Respiratory: Normal Breath Sounds Gastrointestinal/Abdominal: Normal Exam, Bowel Sounds (normal), Soft, No Tenderness, No Guarding, No Rebound, Other ED Course And Treatment - Laboratory Results Result Diagrams: 10/11/17 15:09 10/11/17 15:09 Lab Interpretation: No Acute Changes O2 Sat by Pulse Oximetry: 96 (RA) Pulse Ox Interpretation: Normal Progress Note: Plan: CMP. Drug Screen. Lipase. CBC. NaCl IV Fluids. Patient evaluated by crisis and is agreeable to detox admisison. Patient is medically cleared for admission. Zofran 4mg IVP. Urinalysis Reevaluation Time: 16:37 Reassessment Condition: Improved Disposition - Disposition Disposition: HOSPITALIZED Disposition Time: 16:37 Condition: STABLE - POA Present On Arrival: None - Clinical Impression Clinical Impression: Opiate dependence, continuous - Scribe Statement The provider has reviewed the documentation as recorded by the Scribe (Gunner Garcia) Provider Attestation: All medical record entries made by the Scribe were at my direction and personally dictated by me. I have reviewed the chart and agree that the record accurately reflects my personal performance of the history, physical exam, medical decision making, and the department course for this patient. I have also personally directed, reviewed, and agree with the discharge instructions and disposition.
[2017-10-11 15:14] LABS: BASO # 0.1 K/uL (0.0-0.2); BASO % 0.8 % (0.0-2.0); EOS % 0.3 % (0.0-4.0); HEMOGLOBIN 13.5 g/dL (12.0-18.0); LYMPH # 1.3 K/uL (1.0-4.3); LYMPH % 15.5 % (20.0-40.0); MEAN CELL VOLUME 92.4 fL (80.0-94.0); MEAN CORPUSCULAR HEMOGLOBIN 32.5 pg (27.0-31.0); MEAN CORPUSCULAR HGB CONC 35.2 g/dL (33.0-37.0); MEAN PLATELET VOLUME 6.9 fL (7.2-11.7); MONO # 0.8 K/uL (0.0-0.8); MONO % 9.6 % (0.0-10.0); NEUT # 6.1 K/uL (1.8-7.0); NEUT % 73.8 % (50.0-75.0); NRBC % 0.1 % (0.0-2.0); RBC 4.16 Mil/uL (4.40-5.90); RED CELL DISTRIBUTION WIDTH 13.2 % (11.5-14.5); WHITE BLOOD COUNT 8.2 K/uL (4.8-10.8)
[2017-10-11] MEDS ORDERED: Sodium Chloride 0.9% 1,000 ML ONE (15:23)
[2017-10-11 15:27] LABS: ALB/GLOB RATIO 0.9 (1.0-2.1); ALBUMIN 4.7 g/dL (3.5-5.0); ALT/SGPT 83 U/L (21-72); AST/SGOT 144 U/L (17-59); BLOOD UREA NITROGEN 9 mg/dL (9-20); CALCIUM 9.9 mg/dl (8.6-10.4); GFR AFRICAN-AMERICAN > 60; GFR NON-AFRICAN AMERICAN > 60; LIPASE 38 U/L (23-300)
[2017-10-11 15:42] LABS: GRANULAR CAST 9 /lpf (0-1); SQUAMOUS EPITHIAL < 1 /hpf (0-5); URINE BILIRUBIN NEGATIVE (NEGATIVE); URINE BLOOD NEGATIVE (NEGATIVE); URINE CLARITY Hazy (Clear); URINE COLOR Amber (YELLOW); URINE GLUCOSE (UA) NORMAL (Normal); URINE LEUKOCYTE ESTERASE NEG Leu/uL (Negative); URINE PROTEIN 2+ mg/dL (NEGATIVE)
[2017-10-11 15:43] LABS: BARBITURATES, UR NEGATIVE (NEGATIVE); BENZODIAZEPINES, UR NEGATIVE (NEGATIVE); PHENCYCLIDINE, UR NEGATIVE (NEGATIVE)
[2017-10-11 15:44] LABS: OPIATES, UR POSITIVE (NEGATIVE)
--- NOTE | 2017-10-11 17:02 | PCM.BM ---
<Sissy Lord - Last Filed: 10/11/17 17:01> Treatment Plan Problems - Problems identified on initial assessmt potiential for opiate withdrawal Date Initiated: 10/11/17 Time Initiated: 17:01 Assessment reference: NA Status: Active Treatment assets and liabiliti Patient Assests: ADL independent, cognitively intact Patient Liabilities: substance abuse, medical problems - Milieu Protocol Maintain good personal hygiene: daily Encourage regular showers, daily Remind patient to perform daily oral care, daily Assist patient to perform ADL's Maintain personal safety: every shift Educate patient to report safety concerns to staff, every shift Monitor environment for contraband/sharps Medication safety: Monitor for expected outcome, potential side effects: every shift, Assess barriers to learning: every shift, Assess readiness for medication education: every shift <Sparkle Saini - Last Filed: 10/13/17 12:19> Family Contact Family involvement: Famliy/SO not involved - Goals for Treatment Patient goals for treatment: COMPLETE DETOX AND APPLY FOR [facility]. Discharge/Continuing Care - Education Needs Education Needs: Patient Medication, Patient Diagnosis/Disease Process, Patient Coping Skills, Patient Anger Management skills, Patient Placement options, Patient Community resources - Discharge Discharge Criteria: No longer exhibiting s/s of withdrawal, Reduction of target symptoms Discharge to:: Substance Abuse Rehab - Treatment Team Participation Patient/Family/SO Statement: 10/13/17 12:20 "I WANNA GET INTO [facility]." Discussed with Family/SO: No Was Patient/Family/SO present at Treatment Team Meeting: Yes <Reddy Foster - Last Filed: 10/17/17 14:28> - Diagnosis (1) Opiate dependence, continuous Status: Acute Interventions: 10/13/17 14:28 * Assess 7x/week regarding severity of withdrawal * Educate regarding risks, benefits, side effects and alternatives of medications * Use Motivational Interviewing for abstinence * Use CBT for relapse prevention * Medication management for withdrawal symptoms * Encourage medication assisted treatment *
[2017-10-11] MEDS ORDERED: Aluminum Hydroxide/Magnesium Hydroxide Susp (30 mL) PO PRN (18:47)
[2017-10-12] MEDS: Multiple Vitamins Tab PO SCH (10:48)
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
[2017-10-13] MEDS: Multiple Vitamins Tab PO SCH (09:14)
--- NOTE | 2017-10-13 15:38 | PCM.PYCHPN ---
Psychiatric Progress Note - Psychiatric Progress Note Patient seen today, length of contact: 17 Patient Chief Complaint: "couldn't sleep at all" Problems Identified/Issues Discussed: The pt is seen, chart reviewed, case discussed with staff. The pt is compliant with medications and reports no side-effects. Patient complains of not getting any sleep at night, feeling anxious and uncomfortable with intermittent cramping bilateral leg pain. He has had a poor appetite. Denies nausea, vomiting, diarrhea since yesterday night Symptoms are improving but needs more time to stabilize. After care discussed, support and psychoeducation given. Mental Status Examination - Cognitive Function Orientation: Person, Place, Situation, Time Memory: Intact Attention: WNL Concentration: WNL Association: WNL Fund of Knowledge: WNL - Mood Mood: Anxious - Affect Affect: Broad - Speech Speech: Appropriate - Formal Thought Process Formal Thought Process: No Impairment - Suicidal Ideation Suicidal Ideation: No - Homicidal Ideation Homicidal Ideation: No Goal/Treatment Plan - Goal/Treatment Plan Need for Continued Stay: Remain at risks for inpatient hospitalization Progress Toward Problem(s) and Goals/Treatment Plan: Continue taper with Librium - 25 mg Q8 today Continue taper with methadone - 15 mg today Gabapentin for augmentation if needed As needed medications All risks, benefits and alternatives of the meds discussed, and the pt agreed and understood. Attend groups and activities Supportive therapy and psychoeducation [place] for abstinence CBT for relapse prevention Encourage MAT Refer to rehab or IOP, and self-help groups Smoking cessation with [place] Nicotine patch given - Smoking Cessation Smoking Cessation Initiated: Yes
[2017-10-14] MEDS: Multiple Vitamins Tab PO SCH (09:28)
--- NOTE | 2017-10-14 14:32 | PCM.PYCHPN ---
Psychiatric Progress Note - Psychiatric Progress Note Patient seen today, length of contact: 16 min Patient Chief Complaint: "I'm doing much better" Problems Identified/Issues Discussed: The pt is seen, chart reviewed, case discussed with staff. Support given, CBT and [place] used briefly No new symptoms reported, improving slowly and needs more time No SEs from medications, risks discussed. Patient stated that he was happy, slept well, and was looking forward to leaving. Mental Status Examination - Cognitive Function Orientation: Person, Place, Situation, Time Memory: Intact Attention: WNL Concentration: WNL Association: WNL Fund of Knowledge: WNL - Mood Mood: Anxious - Affect Affect: Broad - Speech Speech: Appropriate - Formal Thought Process Formal Thought Process: No Impairment - Suicidal Ideation Suicidal Ideation: No - Homicidal Ideation Homicidal Ideation: No Goal/Treatment Plan - Goal/Treatment Plan Need for Continued Stay: Remain at risks for inpatient hospitalization, Discharge may exacerbated symptoms, Severe functional impairment Progress Toward Problem(s) and Goals/Treatment Plan: Continue taper with Librium - 25 mg Q8 today Continue taper with methadone - 10 mg today Gabapentin for augmentation if needed As needed medications All risks, benefits and alternatives of the meds discussed, and the pt agreed and understood. Attend groups and activities Supportive therapy and psychoeducation [place] for abstinence CBT for relapse prevention Encourage MAT Refer to rehab or IOP, and self-help groups Smoking cessation with [place] Nicotine patch given
[2017-10-15] MEDS: Multiple Vitamins Tab PO SCH (09:39)
--- NOTE | 2017-10-15 13:10 | PCM.PYCHPN ---
Psychiatric Progress Note - Psychiatric Progress Note Patient seen today, length of contact: 16 min Patient Chief Complaint: "I'm doing much better" Problems Identified/Issues Discussed: The pt is seen, chart reviewed, case discussed with staff. Support given, CBT and [place] used briefly No new symptoms reported, improving slowly and needs more time No SEs from medications, risks discussed. After care discussed Medication Change: Yes (extra 5 mg methadone given) Medical Record Reviewed: Yes Mental Status Examination - Cognitive Function Orientation: Person, Place, Situation, Time Memory: Intact Attention: WNL Concentration: WNL Association: WNL Fund of Knowledge: WNL - Mood Mood: Anxious - Affect Affect: Broad - Speech Speech: Appropriate - Formal Thought Process Formal Thought Process: No Impairment - Suicidal Ideation Suicidal Ideation: No - Homicidal Ideation Homicidal Ideation: No Goal/Treatment Plan - Goal/Treatment Plan Need for Continued Stay: Remain at risks for inpatient hospitalization, Discharge may exacerbated symptoms, Severe functional impairment Progress Toward Problem(s) and Goals/Treatment Plan: Continue taper with Librium - Continue taper with methadone - extra given for sx Gabapentin for augmentation if needed As needed medications All risks, benefits and alternatives of the meds discussed, and the pt agreed and understood. Attend groups and activities Supportive therapy and psychoeducation [place] for abstinence CBT for relapse prevention Encourage MAT Refer to rehab or IOP, and self-help groups Smoking cessation with [place] Nicotine patch given
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
[2017-10-16] MEDS: Multiple Vitamins Tab PO SCH (09:21)
[2017-10-16 10:35] VITALS: BP 117/78; PULSE 102; RESP 20; TEMP 98.4; O2SAT 100
== END 2017-10-16 10:49 | disposition home or self-care (01) | DRG 744 ==
LOC: C.ER 14:42 → C.7D 16:38
PROVIDERS: ADMIT Psychiatry & Neurology Psychiatry; ATTEND Psychiatry & Neurology Psychiatry
PROC: HZ2ZZZZ Detoxification Services for Substance Abuse Treatment (ICD-10-PCS; principal; 2017-10-11)
PROC: HZ59ZZZ Individual Psychotherapy for Substance Abuse Treatment, Supportive (ICD-10-PCS; 2017-10-11)
PROC: HZ46ZZZ Group Counseling for Substance Abuse Treatment, Psychoeducation (ICD-10-PCS; 2017-10-11)
PROC: HZ90ZZZ Pharmacotherapy for Substance Abuse Treatment, Nicotine Replacement (ICD-10-PCS; 2017-10-11)
DX: F11.23 Opioid dependence with withdrawal (principal); F10.239 Alcohol dependence with withdrawal, unspecified; F17.210 Nicotine dependence, cigarettes, uncomplicated; B18.2 Chronic viral hepatitis C; F41.9 Anxiety disorder, unspecified; Z87.440 Personal history of urinary (tract) infections